=== PATIENT | male | born 1945 | race Caucasian/White ===

== ENCOUNTER → 2017-06-04 | Day surgery (SDC) | payer BC, MEDICARE, OTHER ==
[~2017-06-04] MED LIST: Lactated Ringers 1,000 ML IV SCH; Propofol 200 MG/20 ML SDV IV ONE
--- NOTE | 2017-06-05 08:16 | OR ---
DATE OF OPERATION: 06/04/2017 PREOPERATIVE DIAGNOSIS: COLON SCREENING. POSTOPERATIVE DIAGNOSIS: LARGE POLYP AT 20 CM LEVEL. SURGEON: Juan Catalan MD PROCEDURE: COLONOSCOPY AND POLYPECTOMY USING SNARE TECHNIQUE. ANESTHESIA: IV sedation by [employer]. DESCRIPTION OF PROCEDURE: After patient was placed in left lateral position, colonoscope was introduced into anal canal, from where it was maneuvered into rectum, then into sigmoid colon, gradually up the descending colon across the splenic flexure into transverse colon, across the hepatic flexure and descending colon down to cecum. The ileocecal wall was visualized. Then multiple photographs were taken. Colonoscope was gradually withdrawn. At 20 cm level, there was a large polyp present. Using snare technique and cautery, polyp was removed and taken as specimen. Other than this polyp, no other pathology was seen. The patient tolerated the procedure well and left the operating room in satisfactory condition. RAMON/SHARLENE /[id number]
== END ==
LOC: CC.SDS 09:09
PROVIDERS: ATTEND Surgery
DX: Z12.11 Encounter for screening for malignant neoplasm of colon (principal); D12.5 Benign neoplasm of sigmoid colon; I10 Essential (primary) hypertension; I73.9 Peripheral vascular disease, unspecified; E78.5 Hyperlipidemia, unspecified; E11.9 Type 2 diabetes mellitus without complications; N40.0 Benign prostatic hyperplasia without lower urinary tract symptoms; Z90.49 Acquired absence of other specified parts of digestive tract; Z88.1 Allergy status to other antibiotic agents; Z79.84 Long term (current) use of oral hypoglycemic drugs; Z79.899 Other long term (current) drug therapy; E66.9 Obesity, unspecified; Z68.33 Body mass index [BMI] 33.0-33.9, adult
CPT/HCPCS: 45385; 82962; 88305; J2704; J7120; 00810